=== PATIENT | male | born 1990 | race Caucasian/White ===

== ENCOUNTER 2016-02-22 10:35 | Emergency (ER) | payer MEDICAID, OTHER ==
[2016-02-22] MEDS ORDERED: ONDANSETRON 4 MG ORAL DISINTEGRATING TAB (S0181) As Ordered ONE (11:03)
[2016-02-22] MEDS ORDERED: CLINDAMYCIN 150 MG CAP As Ordered ONE (11:03)
--- NOTE | 2016-02-22 11:12 | EDDOCDS ---
Nurse's Notes [facility] Name: Nghia Carney Age: 25 yrs Sex: Male : 1990 Arrival Date: 02/22/2016 Time: 10:35 Bed I4 / M4 Private MD: NO PRIMARY PHYSICIAN, . Diagnosis: Dental caries-Tooth Pain/Abscess Presentation: 02/21 10:39 Presenting complaint: Patient states: Pt presents with upper right dental pain body dls aches and nausea onset last night. Adult Sepsis Screening: The patient does not have new or worsening altered mentation. Patient's respiratory rate is less than 22. Systolic blood pressure is greater than 100. Patient has a qSOFA score of 0- Negative Sepsis Screen. Suicide/Homicide risk assessment- the patient denies having any suicidal and/or homicidal ideations and does not present with any other emotional, behavioral or mental health complaints. Status: Patient is not a service observer or dependent. Transition of care: patient was not received from another setting of care. 10:39 Acuity: DIANA Level 4 dls 10:39 Method Of Arrival: Walkin/Carried/Asstd dls Triage Assessment: 10:40 General: Appears uncomfortable, well developed, well nourished, Behavior is dls cooperative. Pain: Pain currently is 8 out of 10 on a pain scale. HIV screening NA for this visit Offered previously. Historical: - Allergies: no known allergies; - Home Meds: 1. none - PMHx: epiditimis; - PSHx: none; - Social history: Smoking status: Patient uses tobacco products, light tobacco smoker. No barriers to communication noted, The patient speaks fluent Fijian. - Family history: Not pertinent. - : The pt / caregiver states he / she is not on anticoagulants. Home medication list is obtained from the patient. - Exposure Risk Screening:: None identified. Screenin:10 Screening information is obtained from prior medical records. Fall risk: No risks ms2 identified. Assistance ADL's: requires no assistance with activities of daily living. Abuse/DV Screen: The patient / caregiver reports he/she is: not in a situation that causes fear, pain or injury. Nutritional screening: No deficits noted. Advance Directives: Currently, there is no health care proxy. There is no active DNR order. There is no living will. There is no Power of Live Study Manager. Advance directive information has not previously been placed in an [facility] medical record. Further advance directive information is declined. home support is adequate. Assessment: 11:09 Adult Sepsis Screening: Patient has new or worsening altered mentation (1 point). ms2 Patient's respiratory rate is less than 22. Systolic blood pressure is greater than 100. Patient has a qSOFA score of 0- Negative Sepsis Screen. General: Appears in no apparent distress. Neurological: Level of Consciousness is awake, alert, obeys commands. EENT: Respiratory: Airway is patent Respiratory effort is even, unlabored, Respiratory pattern is regular, symmetrical. Derm: Skin is pink, warm & dry. Musculoskeletal: Range of motion intact in all extremities. Vital Signs: 10:36 BP 147 / 81; Pulse 80; Resp 18; Temp 96.1(O); Pulse Ox 100% on R/A; Weight 95.25 kg elp (R); Height 5 ft. 10 in. (177.80 cm) (R); Pain 8/10; 10:36 Body Mass Index 30.13 (95.25 kg, 177.80 cm) el Vitals: 10:36 Log In Time: February 22, 2016 at 10:34. elp ED Course: 10:36 Patient visited by Lacie Agustin PCA. elp 10:36 NO PRIMARY PHYSICIAN, . is Private Physician. elp 10:36 Patient moved to Waiting elp 10:38 Patient visited by Lacie Agustin PCA. elp 10:38 Patient moved to Pre RCE elp 10:40 Triage Initiated dls 10:41 [facility] Looney [facility]. ef1 10:41 Jose Carlos Anglin MD is Attending Physician. ef1 10:41 Patient moved to I4 / M4 dls 10:42 Patient visited by Abigail Looney PA-C. ef1 10:57 Your Dentist is Referral Physician. ef1 11:01 Patient visited by José Miguel Rosenberg RN. ms2 11:10 The patient / caregiver is instructed regarding the plan of care and ED course. ms2 11:10 No IV's were initiated during this patient's visit. No procedures done that require ms2 assistance. Administered Medications: 11:08 Drug: Clindamycin 300 mg [clindamycin 150 mg capsule (2 caps)] Route: PO; ms2 11:08 Drug: Ondansetron ODT 4 mg [ondansetron 4 mg disintegrating tablet (1 tabs)] Route: PO; ms2 Order Results: There are currently no results for this order. Outcome: 10:57 Discharge ordered by Provider. ef1 11:10 Discharge Assessment: patient administered narcotics - no. The following High Risk ms2 Discharge criteria are identified: None. Discharged to home ambulatory. Condition: stable. Discharge instructions given to patient, Instructed on discharge instructions, follow up and referral plans. medication usage, Demonstrated understanding of instructions, medications, Pt was receptive of discharge instructions/ teaching. No special radiology studies were completed. Property sent home with patient. 11:12 Patient left the ED. ms2 Signatures: José Miguel RosenbergRN RN ms2 Maryam Garcia RN RN dls Abigail Looney, PA-C PA-C ef1 Patchen, Lacie, MENTAL RETARDATION NURSE MENTAL RETARDATION NURSE elp MTDD
--- NOTE | 2016-02-22 11:12 | EDDOCDS ---
Physician Documentation [facility] Name: Nghia Carney Age: 25 yrs Sex: Male : 1990 Arrival Date: 02/22/2016 Time: 10:35 Bed I4 / M4 Private MD: NO PRIMARY PHYSICIAN, . Disposition: 02/22/16 10:57 Discharged to Home/Self Care. Impression: Dental caries - Tooth Pain/Abscess. - Condition is Stable. - Discharge Instructions: Dental Abscess, Dental Pain, [id number]. - Prescriptions for Clindamycin HCl 300 mg Oral Capsule - take 1 capsule by ORAL route every 6 hours; 40 capsule. Ibuprofen 800 mg Oral Tablet - take 1 tablet by ORAL route every 8 hours As needed take with food; 30 tablet. ZOFRAN ODT 4 mg - dissolve 1 tablet by ORAL route 4 times per day As needed do not chew, do not swallow whole; 10 tablet. - Medication Reconciliation, Local Pharmacy Hours, Referral List Call for Appointment, Dental Referral List form. - Follow up: Dentist Your; When: 1 - 2 days; Reason: Further diagnostic work-up, Recheck today's complaints, Continuance of care. Follow up: Emergency Department; Reason: Worsening of conditions. - Problem is new. - Symptoms have improved. Historical: - Allergies: no known allergies; - Home Meds: 1. none - PMHx: epiditimis; - PSHx: none; - Social history: Smoking status: Patient uses tobacco products, light tobacco smoker. No barriers to communication noted, The patient speaks fluent Divehi. - Family history: Not pertinent. - : The pt / caregiver states he / she is not on anticoagulants. Home medication list is obtained from the patient. - Exposure Risk Screening:: None identified. Vital Signs: 02/21 10:36 BP 147 / 81; Pulse 80; Resp 18; Temp 96.1(O); Pulse Ox 100% on R/A; Weight 95.25 kg / elp 209.99 lbs (R); Height 5 ft. 10 in. (177.80 cm) (R); Pain 8/10; 10:36 Body Mass Index 30.13 (95.25 kg, 177.80 cm) elp MDM: 10:57 Clindamycin 300 mg PO once ordered. ef1 10:57 Ondansetron ODT Oral Disintegrating Tablet 4 mg PO once ordered. ef1 11:06 Financial registration complete. mm15 Administered Medications: 11:08 Drug: Clindamycin 300 mg [clindamycin 150 mg capsule (2 caps)] Route: PO; ms2 11:08 Drug: Ondansetron ODT 4 mg [ondansetron 4 mg disintegrating tablet (1 tabs)] Route: PO; ms2 Signatures: José Miguel Rosenberg RN RN ms2 Maryam Garcia RN RN dls Abigail Looney PA-C PADawit ef1 Maria Victoria Prince mm15 MTDD
--- NOTE | 2016-02-24 12:12 | EDDOCDS ---
Physician Documentation [facility] Name: Nghia Carney Age: 25 yrs Sex: Male : 1990 Arrival Date: 02/22/2016 Time: 10:35 Bed I4 / M4 Private MD: NO PRIMARY PHYSICIAN, . Disposition: 02/22/16 10:57 Discharged to Home/Self Care. Impression: Dental caries - Tooth Pain/Abscess. - Condition is Stable. - Discharge Instructions: Dental Abscess, Dental Pain, [id number]. - Prescriptions for Clindamycin HCl 300 mg Oral Capsule - take 1 capsule by ORAL route every 6 hours; 40 capsule. Ibuprofen 800 mg Oral Tablet - take 1 tablet by ORAL route every 8 hours As needed take with food; 30 tablet. ZOFRAN ODT 4 mg - dissolve 1 tablet by ORAL route 4 times per day As needed do not chew, do not swallow whole; 10 tablet. - Medication Reconciliation, Local Pharmacy Hours, Referral List Call for Appointment, Dental Referral List form. - Follow up: Dentist Your; When: 1 - 2 days; Reason: Further diagnostic work-up, Recheck today's complaints, Continuance of care. Follow up: Emergency Department; Reason: Worsening of conditions. - Problem is new. - Symptoms have improved. Historical: - Allergies: no known allergies; - Home Meds: 1. none - PMHx: epiditimis; - PSHx: none; - Social history: Smoking status: Patient uses tobacco products, light tobacco smoker. No barriers to communication noted, The patient speaks fluent French. - Family history: Not pertinent. - : The pt / caregiver states he / she is not on anticoagulants. Home medication list is obtained from the patient. - Exposure Risk Screening:: None identified. Vital Signs: 02/21 10:36 BP 147 / 81; Pulse 80; Resp 18; Temp 96.1(O); Pulse Ox 100% on R/A; Weight 95.25 kg / elp 209.99 lbs (R); Height 5 ft. 10 in. (177.80 cm) (R); Pain 8/10; 10:36 Body Mass Index 30.13 (95.25 kg, 177.80 cm) elp MDM: 10:57 Clindamycin 300 mg PO once ordered. ef1 10:57 Ondansetron ODT Oral Disintegrating Tablet 4 mg PO once ordered. ef1 11:06 Financial registration complete. mm15 11:15 [facility] Payment Agreement was scanned into [employer] and attached to record. mm15 11:57 T-Sheet-- Draft Copy was scanned into [employer] and attached to record. seh Administered Medications: 11:08 Drug: Clindamycin 300 mg [clindamycin 150 mg capsule (2 caps)] Route: PO; ms2 11:08 Drug: Ondansetron ODT 4 mg [ondansetron 4 mg disintegrating tablet (1 tabs)] Route: PO; ms2 Signatures: José Miguel Rosenberg RN RN ms2 Maryam Garcia RN RN dls Abigail Looney PA-C PADawit ef1 Maria Victoria Prince mm15 Zuly Mejía [facility] The chart was reviewed and I authenticate all verbal orders and agree with the evaluation and treatment provided.Attachments: 11:15 [facility] Payment Agreement mm15 11:57 T-Sheet-- Draft Copy [facility] Chart Complete MTDD
--- NOTE | 2016-02-24 12:12 | EDDOCDS ---
Physician Documentation [facility] Name: Nghia Carney Age: 25 yrs Sex: Male : 1990 Arrival Date: 02/22/2016 Time: 10:35 Bed I4 / M4 Private MD: NO PRIMARY PHYSICIAN, . Disposition: 02/22/16 10:57 Discharged to Home/Self Care. Impression: Dental caries - Tooth Pain/Abscess. - Condition is Stable. - Discharge Instructions: Dental Abscess, Dental Pain, [id number]. - Prescriptions for Clindamycin HCl 300 mg Oral Capsule - take 1 capsule by ORAL route every 6 hours; 40 capsule. Ibuprofen 800 mg Oral Tablet - take 1 tablet by ORAL route every 8 hours As needed take with food; 30 tablet. ZOFRAN ODT 4 mg - dissolve 1 tablet by ORAL route 4 times per day As needed do not chew, do not swallow whole; 10 tablet. - Medication Reconciliation, Local Pharmacy Hours, Referral List Call for Appointment, Dental Referral List form. - Follow up: Dentist Your; When: 1 - 2 days; Reason: Further diagnostic work-up, Recheck today's complaints, Continuance of care. Follow up: Emergency Department; Reason: Worsening of conditions. - Problem is new. - Symptoms have improved. Historical: - Allergies: no known allergies; - Home Meds: 1. none - PMHx: epiditimis; - PSHx: none; - Social history: Smoking status: Patient uses tobacco products, light tobacco smoker. No barriers to communication noted, The patient speaks fluent Indonesian. - Family history: Not pertinent. - : The pt / caregiver states he / she is not on anticoagulants. Home medication list is obtained from the patient. - Exposure Risk Screening:: None identified. Vital Signs: 02/21 10:36 BP 147 / 81; Pulse 80; Resp 18; Temp 96.1(O); Pulse Ox 100% on R/A; Weight 95.25 kg / elp 209.99 lbs (R); Height 5 ft. 10 in. (177.80 cm) (R); Pain 8/10; 10:36 Body Mass Index 30.13 (95.25 kg, 177.80 cm) elp MDM: 10:57 Clindamycin 300 mg PO once ordered. ef1 10:57 Ondansetron ODT Oral Disintegrating Tablet 4 mg PO once ordered. ef1 11:06 Financial registration complete. mm15 11:15 [facility] Payment Agreement was scanned into [employer] and attached to record. mm15 11:57 T-Sheet-- Draft Copy was scanned into [employer] and attached to record. seh Administered Medications: 11:08 Drug: Clindamycin 300 mg [clindamycin 150 mg capsule (2 caps)] Route: PO; ms2 11:08 Drug: Ondansetron ODT 4 mg [ondansetron 4 mg disintegrating tablet (1 tabs)] Route: PO; ms2 Signatures: José Miguel Rosenberg RN RN ms2 Maryam Garcia RN RN dls Abigail Looney PA-C PADawit ef1 Maria Victoria Prince mm15 Zuly Mejía [facility] The chart was reviewed and I authenticate all verbal orders and agree with the evaluation and treatment provided.Attachments: 11:15 [facility] Payment Agreement mm15 11:57 T-Sheet-- Draft Copy [facility] Chart Complete MTDD
--- NOTE | 2016-02-24 12:12 | EDDOCDS ---
Nurse's Notes [facility] Name: Nghia Carney Age: 25 yrs Sex: Male : 1990 Arrival Date: 02/22/2016 Time: 10:35 Bed I4 / M4 Private MD: NO PRIMARY PHYSICIAN, . Diagnosis: Dental caries-Tooth Pain/Abscess Presentation: 02/21 10:39 Presenting complaint: Patient states: Pt presents with upper right dental pain body dls aches and nausea onset last night. Adult Sepsis Screening: The patient does not have new or worsening altered mentation. Patient's respiratory rate is less than 22. Systolic blood pressure is greater than 100. Patient has a qSOFA score of 0- Negative Sepsis Screen. Suicide/Homicide risk assessment- the patient denies having any suicidal and/or homicidal ideations and does not present with any other emotional, behavioral or mental health complaints. Status: Patient is not a office services manager or dependent. Transition of care: patient was not received from another setting of care. 10:39 Acuity: DIANA Level 4 dls 10:39 Method Of Arrival: Walkin/Carried/Asstd dls Triage Assessment: 10:40 General: Appears uncomfortable, well developed, well nourished, Behavior is dls cooperative. Pain: Pain currently is 8 out of 10 on a pain scale. HIV screening NA for this visit Offered previously. Historical: - Allergies: no known allergies; - Home Meds: 1. none - PMHx: epiditimis; - PSHx: none; - Social history: Smoking status: Patient uses tobacco products, light tobacco smoker. No barriers to communication noted, The patient speaks fluent Cameroonian. - Family history: Not pertinent. - : The pt / caregiver states he / she is not on anticoagulants. Home medication list is obtained from the patient. - Exposure Risk Screening:: None identified. Screenin:10 Screening information is obtained from prior medical records. Fall risk: No risks ms2 identified. Assistance ADL's: requires no assistance with activities of daily living. Abuse/DV Screen: The patient / caregiver reports he/she is: not in a situation that causes fear, pain or injury. Nutritional screening: No deficits noted. Advance Directives: Currently, there is no health care proxy. There is no active DNR order. There is no living will. There is no Power of Machine Container Washer. Advance directive information has not previously been placed in an [facility] medical record. Further advance directive information is declined. home support is adequate. Assessment: 11:09 Adult Sepsis Screening: Patient has new or worsening altered mentation (1 point). ms2 Patient's respiratory rate is less than 22. Systolic blood pressure is greater than 100. Patient has a qSOFA score of 0- Negative Sepsis Screen. General: Appears in no apparent distress. Neurological: Level of Consciousness is awake, alert, obeys commands. EENT: Respiratory: Airway is patent Respiratory effort is even, unlabored, Respiratory pattern is regular, symmetrical. Derm: Skin is pink, warm & dry. Musculoskeletal: Range of motion intact in all extremities. Vital Signs: 10:36 BP 147 / 81; Pulse 80; Resp 18; Temp 96.1(O); Pulse Ox 100% on R/A; Weight 95.25 kg elp (R); Height 5 ft. 10 in. (177.80 cm) (R); Pain 8/10; 10:36 Body Mass Index 30.13 (95.25 kg, 177.80 cm) el Vitals: 10:36 Log In Time: February 22, 2016 at 10:34. elp ED Course: 10:36 Patient visited by Lacie Agustin PCA. elp 10:36 NO PRIMARY PHYSICIAN, . is Private Physician. elp 10:36 Patient moved to Waiting elp 10:38 Patient visited by Lacie Agustin PCA. elp 10:38 Patient moved to Pre RCE elp 10:40 Triage Initiated dls 10:41 [facility] Looney [facility] ef[facility] 10:41 Jose Carlos Anglin MD is Attending Physician. ef1 10:41 Patient moved to I4 / M4 dls 10:42 Patient visited by Abigail Looney PA-C. ef1 10:57 Your, Dentist is Referral Physician. ef1 11:01 Patient visited by José Miguel Rosenberg RN. ms2 11:10 The patient / caregiver is instructed regarding the plan of care and ED course. ms2 11:10 No IV's were initiated during this patient's visit. No procedures done that require ms2 assistance. 11:15 [facility] Payment Agreement was scanned into [email or web address] and attached to record. mm15 11:57 T-Sheet-- Draft Copy was scanned into [email or web address] and attached to record. se Administered Medications: 11:08 Drug: Clindamycin 300 mg [clindamycin 150 mg capsule (2 caps)] Route: PO; ms2 11:08 Drug: Ondansetron ODT 4 mg [ondansetron 4 mg disintegrating tablet (1 tabs)] Route: PO; ms2 Order Results: There are currently no results for this order. Outcome: 10:57 Discharge ordered by Provider. ef1 11:10 Discharge Assessment: patient administered narcotics - no. The following High Risk ms2 Discharge criteria are identified: None. Discharged to home ambulatory. Condition: stable. Discharge instructions given to patient, Instructed on discharge instructions, follow up and referral plans. medication usage, Demonstrated understanding of instructions, medications, Pt was receptive of discharge instructions/ teaching. No special radiology studies were completed. Property sent home with patient. 11:12 Patient left the ED. ms2 Signatures: José Miguel Rosenberg RN RN ms2 Maryam Garcia RN RN dls Abigail Looney, PA-C PA-C ef1 Maria Victoria Prince mm15 Lacie Agustin, [employer] Zuly Manuel Chart Complete MTDD
== END 2016-02-22 11:12 | disposition home or self-care (01) ==
LOC: M ED 10:35
DX: K04.7 Periapical abscess without sinus (principal); K02.9 Dental caries, unspecified; N45.1 Epididymitis; F17.210 Nicotine dependence, cigarettes, uncomplicated

== ENCOUNTER 2017-06-21 17:42 | Emergency (ER) | payer OTHER ==
[2017-06-21] MEDS: PERCOCET 5MG/325MG TAB PO (18:42)
== END 2017-06-21 19:10 | disposition home or self-care (01) ==
LOC: M ED 17:42
DX: S46.811A Strain of other muscles, fascia and tendons at shoulder and upper arm level, right arm, initial encounter (principal); S46.111A Strain of muscle, fascia and tendon of long head of biceps, right arm, initial encounter; X50.0XXA Overexertion from strenuous movement or load, initial encounter; Y92.099 Unspecified place in other non-institutional residence as the place of occurrence of the external cause; Y93.9 Activity, unspecified; Y99.9 Unspecified external cause status; F17.200 Nicotine dependence, unspecified, uncomplicated
CPT/HCPCS: 99283

== ENCOUNTER 2020-11-14 16:22 | Emergency (ER) | payer MEDICAID, OTHER ==
[~2020-11-14] VITALS: Ht 175.3 cm; Wt 85.7 kg
[2020-11-14 16:22] VITALS: BP 125/65
[~2020-11-14 16:22] MED LIST: HYDR-3715 PO
[2020-11-14] MEDS ORDERED: ACET-683 PO (16:46)
[2020-11-14] MEDS ORDERED: IBUP200T45 PO (16:46)
[2020-11-14] MEDS ORDERED: KETOROLAC 60MG 2ML VIAL IM ONE (18:05)
[2020-11-14] MEDS ORDERED: AUGMENTIN 875 MG TAB PO ONE (18:05)
== END 2020-11-14 18:16 | disposition left against medical advice (07) ==
LOC: M ED 16:22
DX: K08.89 Other specified disorders of teeth and supporting structures (principal); F17.200 Nicotine dependence, unspecified, uncomplicated; Z53.20 Procedure and treatment not carried out because of patient's decision for unspecified reasons

== ENCOUNTER 2021-11-09 16:41 | Emergency (ER) | payer OTHER ==
[~2021-11-09] VITALS: Ht 175.3 cm; Wt 81.8 kg
[2021-11-09 16:41] VITALS: BP 140/85
[~2021-11-09 16:41] MED LIST changes: +ACET-683 PO; +IBUP200T46 PO
[2021-11-09] MEDS ORDERED: IBUPROFEN 800 MG TAB PO ONE (17:20)
[2021-11-09 17:43] LABS: RSV AMPLIFICATION NEGATIVE (NEGATIVE)
[2021-11-09 19:00] LABS: BASO % 0.5 % (0.0-1.0); HEMATOCRIT 44.9 % (42.0-52.0); HEMOGLOBIN 14.8 g/dl (13.5-17.5); LYMPH # 1.2 10^3/uL (1.5-5.0); LYMPH % 19.4 % (24.0-44.0); MEAN CORPUSCULAR HEMOGLOBIN 30.3 pg (27.0-33.0); MEAN CORPUSCULAR VOLUME 91.8 fl (80.0-96.0); MONO # 0.7 10^3/uL (0.0-0.8); MONO % 10.5 % (2.0-8.0); NEUTROPHILS # 4.5 10^3/uL (1.5-8.5); NEUTROPHILS % 69.4 % (36.0-66.0); PLATELET COUNT, AUTOMATED 145 10^3/uL (150-450); RED BLOOD COUNT 4.89 10^6/uL (4.30-6.10); WHITE BLOOD COUNT 6.4 10^3/uL (4.0-10.0)
[2021-11-09 19:31] LABS: ALBUMIN 4.4 GM/DL (3.2-5.2); BILIRUBIN,DIRECT 0.2 MG/DL (0.0-0.2); BILIRUBIN,TOTAL 0.8 MG/DL (0.2-1.0); TOTAL PROTEIN 8.4 GM/DL (6.4-8.2)
[2021-11-09] MEDS ORDERED: NS 1,000 ML IV ONE (20:10)
[2021-11-09] MEDS ORDERED: ISOVUE-370 76% 100ML VIAL As Ordered ONE (20:12)
[2021-11-09] MEDS ORDERED: ACETAMINOPHEN 325 MG TAB PO ONE (20:15)
[2021-11-09 20:42] LABS: APPEARANCE, URINE MANUAL CLEAR (CLEAR); COLOR, URINE MANUAL YELLOW (YELLOW); PROTEIN, URINE MANUAL NEGATIVE (NEGATIVE); SPECIFIC GRAVITY,URINE MANUAL 1.015 (1.002-1.035)
[2021-11-09 20:43] LABS: BLOOD URINE MANUAL NEGATIVE (NEGATIVE); GLUCOSE, URINE (UA) MANUAL NEGATIVE (NEGATIVE); KETONE, URINE MANUAL 2+ mg/dL (NEGATIVE); LEUKOCYTE ESTERASE, URINE MAN NEGATIVE (NEGATIVE); NITRITE, URINE MANUAL NEGATIVE (NEGATIVE)
[2021-11-09 20:44] LABS: BILIRUBIN, URINE MANUAL 1+ (NEGATIVE); UROBILINOGEN, URINE MANUAL 1 MG mg/dl (NORMAL)
[2021-11-09] MEDS ORDERED: KETOROLAC 30 MG/ML 1ML VIAL IV ONE (23:00)
== END 2021-11-09 23:09 | disposition home or self-care (01) ==
LOC: M ED 16:41
DX: R50.9 Fever, unspecified (principal); R10.9 Unspecified abdominal pain; R91.8 Other nonspecific abnormal finding of lung field; B34.9 Viral infection, unspecified; F17.200 Nicotine dependence, unspecified, uncomplicated
CPT/HCPCS: 71046; 74177; 80047; 80076; 81002; 83605; 83690; 85025; 87040; 87631; 96360; 96361; 99284; Q9967

== ENCOUNTER 2022-12-06 13:40 | Emergency (ER) | payer OTHER ==
[~2022-12-06] VITALS: Ht 175.3 cm; Wt 89.9 kg
[2022-12-06 13:41] VITALS: BP 140/90; TEMP 98.1; O2SAT 99
[2022-12-06] MEDS ORDERED: KETO10TAB PO (18:14)
[2022-12-06] MEDS ORDERED: AMOX875T2 PO (18:14)
[2022-12-06] MEDS ORDERED: KETOROLAC 60MG 2ML VIAL IM ONE (18:15)
== END 2022-12-06 18:24 | disposition home or self-care (01) ==
LOC: M ED 13:40
DX: R68.84 Jaw pain (principal); K02.9 Dental caries, unspecified; K12.2 Cellulitis and abscess of mouth

== ENCOUNTER 2023-01-31 14:57 | Emergency (ER) | payer OTHER ==
[~2023-01-31] VITALS: Ht 175.3 cm; Wt 87.7 kg
[~2023-01-31 14:57] MED LIST changes: +AMOX875T2 PO; +KETO10TAB PO
[2023-01-31] MEDS ORDERED: OXYC1TAB23 (15:08)
[2023-01-31] MEDS ORDERED: fentaNYL 100 MCG/2 ML INJECTION IV ONE ×4 (15:20→18:05)
[2023-01-31] MEDS ORDERED: ISOVUE-370 76% 100ML VIAL As Ordered ONE (15:29)
[2023-01-31 15:30] LABS: BASO # 0.1 10^3/uL (0.0-0.2); BASO % 0.7 % (0.0-1.0); EOS # 0.3 10^3/uL (0.0-0.5); EOS % 2.6 % (0.0-3.0); HEMATOCRIT 43.7 % (42.0-52.0); LYMPH # 4.5 10^3/uL (1.5-5.0); LYMPH % 37.8 % (24.0-44.0); MEAN CORPUSCULAR HEMOGLOBIN 30.6 pg (27.0-33.0); MEAN CORPUSCULAR HGB CONC 34.3 g/dl (32.0-36.5); MEAN CORPUSCULAR VOLUME 89.2 fl (80.0-96.0); MONO # 0.8 10^3/uL (0.0-0.8); MONO % 6.7 % (2.0-8.0); NEUTROPHILS # 6.2 10^3/uL (1.5-8.5); NEUTROPHILS % 51.8 % (36.0-66.0); PLATELET COUNT, AUTOMATED 235 10^3/uL (150-450)
[2023-01-31] MEDS ORDERED: NS 1,000 ML IV SCH (17:25)
[2023-01-31] MEDS ORDERED: propofoL 200 MG/20 ML VIAL IV ONE ×2 (17:25→18:20)
[2023-01-31 19:59] VITALS: O2SAT 98
[2023-01-31 20:18] VITALS: BP 147/85; TEMP 98.1; O2SAT 97
== END 2023-01-31 20:23 | disposition home or self-care (01) ==
LOC: M ED 14:57
DX: S42.252A Displaced fracture of greater tuberosity of left humerus, initial encounter for closed fracture (principal); V86.59XA Driver of other special all-terrain or other off-road motor vehicle injured in nontraffic accident, initial encounter; Y92.89 Other specified places as the place of occurrence of the external cause; Y93.89 Activity, other specified; Y99.8 Other external cause status; F17.200 Nicotine dependence, unspecified, uncomplicated
CPT/HCPCS: 29240; 70450; 71260; 72125; 73030; 73060; 73080; 74177; 80047; 85025; 93041; 94760; 99152; 99285; J3010; Q9967